=== PATIENT | male | born 1950 | race Caucasian/White ===

== ENCOUNTER 2018-06-27 00:47 | Emergency (ER) | payer OTHER ==
[~2018-06-27] VITALS: Ht 167.6 cm; Wt 65.8 kg
[~2018-06-27 00:47] MED LIST: DARU1TAB PO; LEVO200T8 PO; LEVO750T21 PO; METH4TAB16 PO; OMEP20CA10 PO; RALT400T PO; ROSU10TA PO; SILO8CAP PO
[2018-06-27 01:00] VITALS: BP 150/82
[2018-06-27] MEDS ORDERED: FLUORESCEIN SODIUM OPHTH 1 EA STRIP ONE (01:41)
[2018-06-27] MEDS ORDERED: TETRACAINE HCL/PF 0.5% UD 2 ML BOTTLE ONE (01:41)
[2018-06-27] MEDS ORDERED: ACETAMINOPHEN ES 500 MG TABLET ONE ×2 (02:15→02:33)
[2018-06-27] MEDS ORDERED: ACETAMINOPHEN ES 500 MG TABLET PO ONE (02:30)
== END 2018-06-27 02:40 | disposition home or self-care (01) ==
LOC: ER 00:49
DX: H57.8 Other specified disorders of eye and adnexa (principal)
CPT/HCPCS: A4606; Z7610

== ENCOUNTER 2018-12-07 11:57 | Outpatient (CLI) | payer MEDICARE, OTHER ==
[~2018-12-07 11:57] MED LIST changes: -ROSU10TA PO; +ROSU10TA2 PO; -SILO8CAP PO; +SILO8CAP2 PO
== END 2018-12-07 23:59 | disposition home or self-care (01) ==
LOC: RAD 11:57
DX: M50.322 Other cervical disc degeneration at C5-C6 level (principal); M25.78 Osteophyte, vertebrae
CPT/HCPCS: 72050-TC

== ENCOUNTER 2019-07-24 12:43 | Emergency (ER) | payer MEDICARE, OTHER ==
[~2019-07-24] VITALS: Ht 160 cm; Wt 65.3 kg
[~2019-07-24 12:43] MED LIST changes: -OMEP20CA10 PO; +OMEP20CA11 PO
[2019-07-24 13:26] LABS: BASOPHILS % (AUTO) 0.7 % (0.0-2.0); EOSINOPHILS % (AUTO) 1.4 % (0.0-6.0); HEMATOCRIT 45 % (39-51); HEMOGLOBIN 15.2 g/dL (13.5-17.5); LYMPHOCYTES # (AUTO) 1.2 /CMM (0.8-4.8); LYMPHOCYTES % (AUTO) 20.5 % (20.0-44.0); MEAN CORPUSCULAR HGB CONC 34 g/dl (31.0-36.0); MEAN CORPUSCULAR VOLUME 86 fL (80-96); MONOCYTES # (AUTO) 0.4 /CMM (0.1-1.30); MONOCYTES % (AUTO) 6.5 % (2.0-12.0); NEUTROPHILS # (AUTO) 4.3 /CMM (1.8-8.9); NEUTROPHILS % (AUTO) 70.9 % (43.0-81.0); PLATELET COUNT (AUTO) 216 /CMM (150-450); RED BLOOD CELL COUNT(AUTO) 5.21 MIL/uL (4.5-6.0); WHITE BLOOD COUNT (AUTO) 6.1 K/uL (4.3-11.0)
--- NOTE | 2019-07-24 13:31 | NUR ---
Pt awake and alert, showing no signs of distress, complaining of intermittent chest pain radiating to left shoulder 4/10 sharp pain reported. Pain comes at rest. IV site started on right forearm #20 saline-locked. Pt's nephew at bedside allowed by pt to participate in care and be informed about pt's condition.
[2019-07-24 13:32] LABS: CALCIUM, SERUM 8.7 mg/dL (8.5-10.1); CARBON DIOXIDE 25 mmol/L (21-32); CHLORIDE 104 mmol/L (98-107); CREATININE 0.9 mg/dL (0.6-1.3); GLUCOSE 106 mg/dL (74-106); SODIUM SERUM 138 mmol/L (136-145); UREA NITROGEN, BLOOD 13 mg/dL (7-18)
[2019-07-24 14:07] LABS: THYROID STIMULATING HORMONE 0.291 uIU/mL (0.358-3.74)
--- NOTE | 2019-07-24 16:23 | NUR ---
CALLED DIETARY FOR FOOD TRAY
--- NOTE | 2019-07-24 17:19 | NUR ---
Discharge instructions discussed with pt and pt's nephew at bedside, opportunity to ask questions was provided to pt. no questions or clarification requested. pt and pt's nephew understood that pt needs to follow up with primary care physician on friday and request a referral to [facility]. labs and imaging reports were given to pt. IV site discontinued and pressure dressin in place. no obvious signs of bleeding observed.
[2019-07-24 17:29] VITALS: BP 139/73
== END 2019-07-24 17:29 | disposition home or self-care (01) ==
LOC: ER 12:48
DX: R00.2 Palpitations (principal); E03.9 Hypothyroidism, unspecified; I10 Essential (primary) hypertension; E78.5 Hyperlipidemia, unspecified; R42 Dizziness and giddiness; F41.9 Anxiety disorder, unspecified; E78.00 Pure hypercholesterolemia, unspecified
CPT/HCPCS: 36415; 71045-TC; 80048-TC; 84439-TC; 84443-TC; 84484-TC; 85025-TC

== ENCOUNTER 2021-05-29 19:11 | Emergency (ER) | payer OTHER ==
[~2021-05-29] VITALS: Ht 165.1 cm; Wt 68.0 kg
[~2021-05-29 19:11] MED LIST changes: -OMEP20CA11 PO; +OMEP20CA15 PO
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
[2021-05-29] MEDS ORDERED: FLUORESCEIN SODIUM OPHTH 1 EA STRIP ONE (20:02)
[2021-05-29] MEDS ORDERED: TETRAcaine 5 ML BOTTLE EACHEYE ONE (20:30)
[2021-05-29] MEDS ORDERED: GENT5DRO4 LEFTEYE (20:36)
--- NOTE | 2021-05-29 20:46 | NUR ---
Patient discharged to home in stable condition. Written and verbal after care instructions given. Patient verbalizes understanding of instruction and RX. Told to follow up with PMD.
[2021-05-29 20:47] VITALS: BP 137/76
== END 2021-05-29 20:47 | disposition home or self-care (01) ==
LOC: ER 19:18
DX: S05.02XA Injury of conjunctiva and corneal abrasion without foreign body, left eye, initial encounter (principal); H10.89 Other conjunctivitis; I10 Essential (primary) hypertension; F41.9 Anxiety disorder, unspecified; E78.00 Pure hypercholesterolemia, unspecified; E78.5 Hyperlipidemia, unspecified; Z79.899 Other long term (current) drug therapy; W22.8XXA Striking against or struck by other objects, initial encounter; Y93.89 Activity, other specified; Y92.89 Other specified places as the place of occurrence of the external cause; Y99.8 Other external cause status

== ENCOUNTER 2022-02-27 13:04 | Emergency (ER) | payer OTHER ==
[~2022-02-27] VITALS: Ht 165.1 cm; Wt 79.4 kg
[~2022-02-27 13:04] MED LIST changes: +GENT5DRO4 LEFTEYE
[2022-02-27 13:10] VITALS: BP 157/65
--- NOTE | 2022-02-27 13:15 | NUR ---
BIBS c/o left arm redness, itching, and pain 5/10 "possible insect bite"x 2 days. continue to monitor.
[2022-02-27] MEDS ORDERED: CLIN300C12 PO (13:17)
--- NOTE | 2022-02-27 13:22 | NUR ---
Patient discharged to home in stable condition. Written and verbal after care instructions given. Patient verbalizes understanding of instruction.
== END 2022-02-27 13:23 | disposition home or self-care (01) ==
LOC: ER 13:09
DX: L03.114 Cellulitis of left upper limb (principal); T63.441A Toxic effect of venom of bees, accidental (unintentional), initial encounter; I10 Essential (primary) hypertension; F41.9 Anxiety disorder, unspecified; E78.00 Pure hypercholesterolemia, unspecified; E03.9 Hypothyroidism, unspecified; Z79.52 Long term (current) use of systemic steroids; Z79.899 Other long term (current) drug therapy; Y92.89 Other specified places as the place of occurrence of the external cause